=== PATIENT | male | born 1995 | race African-American/Black ===

== ENCOUNTER 2018-05-24 18:43 | Emergency (ER) | payer SELFPAY ==
--- NOTE | 2018-05-24 20:08 | EDPHYS ---
Physician Documentation [facility] Name: Lux Woodall Age: 23 yrs Sex: Male : 1995 Arrival Date: 05/24/2018 Time: 18:44 Bed 14 Private MD: ED Physician Puneet Pyle HPI: 05/24 19:56 This 23 yrs old Black Male presents to ER via Ambulatory with complaints of Headache. cp 19:56 The patient complains of pain to the forehead. The patient describes the headache as cp aching. Onset: The symptoms/episode began/occurred 2 day(s) ago. Associated signs and symptoms: The patient has no apparent associated signs or symptoms. 19:57 Severity of symptoms: in the emergency department the pain is unchanged, has not taken cp any medications for pain, a " 7" out of "10". Patient reports missing work today due to headache. Historical: - Allergies: 18:50 No Known Allergies; ch - Home Meds: 18:50 None [Active]; ch - PMHx: 18:50 None; ch - PSHx: 18:50 None; ch - Immunization history:: Adult Immunizations up to date, Flu vaccine is not up to date. - Social history:: Smoking status: Patient/guardian denies using tobacco, Patient uses alcohol, only on a social basis. Patient/guardian denies using street drugs. - Ebola Screening: : Patient negative for fever greater than or equal to 101.5 degrees Fahrenheit, and additional compatible Ebola Virus Disease symptoms Patient denies exposure to infectious person Patient denies travel to an Ebola-affected area in the 21 days before illness onset No symptoms or risks identified at this time. ROS: 19:58 Eyes: Negative for injury, pain, redness, and discharge. cp 19:58 Constitutional: Negative for body aches, chills, fever, poor PO intake. 19:58 ENT: Negative for drainage from ear(s), ear pain, sore throat, difficulty swallowing, difficulty handling secretions. 19:58 Neck: Negative for pain with movement, pain at rest, stiffness. 19:58 Cardiovascular: Negative for chest pain, edema, palpitations. 19:58 Respiratory: Negative for cough, shortness of breath, wheezing. 19:58 Abdomen/GI: Negative for abdominal pain, nausea, vomiting, and diarrhea. 19:58 Neuro: Positive for headache, Negative for altered mental status, weakness. 19:58 All other systems are negative. Exam: 20:01 Constitutional: The patient appears in no acute distress, alert, awake, comfortable, cp non-toxic, well developed, well nourished. 20:01 Head/Face: Normocephalic, atraumatic. cp 20:01 Eyes: Periorbital structures: appear normal, Pupils: equal, round, and reactive to light and accomodation, Extraocular movements: intact throughout, Conjunctiva: normal, no exudate, no injection, Lids and lashes: appear normal, bilaterally. 20:01 ENT: External ear(s): are unremarkable, Ear canal(s): are normal, clear, TM's: bulging, is not appreciated, bilaterally, dullness, bilaterally, erythema, is not appreciated, bilaterally, Nose: is normal, Mouth: Lips: moist, Oral mucosa: pink and intact, moist, Posterior pharynx: is normal, airway is patent, no erythema, no exudate. 20:01 Neck: ROM/movement: is normal, is supple, without pain, no range of motions limitations, no meningismus, no nuchal rigidity, Lymph nodes: no appreciated lymphadenopathy. 20:01 Chest/axilla: Inspection: normal, Palpation: is normal, no crepitus, no tenderness. 20:01 Cardiovascular: Rate: normal, Rhythm: regular. 20:01 Respiratory: the patient does not display signs of respiratory distress, Respirations: normal, no use of accessory muscles, no retractions, no splinting, no tachypnea, labored breathing, is not present, Breath sounds: are clear throughout, no decreased breath sounds, no stridor, no wheezing. 20:01 Abdomen/GI: Inspection: abdomen appears normal, Palpation: abdomen is soft and non-tender, in all quadrants. 20:01 Skin: cellulitis, is not appreciated, no rash present. 20:01 Neuro: Orientation: to person, place \\T\\ time. Mentation: is normal, Cerebellar function: is grossly normal, Motor: moves all fours, strength is normal, Sensation: is normal. Vital Signs: 18:50 BP 117 / 63; Pulse 67; Resp 16; Temp 97.8; Pulse Ox 99% on R/A; Weight 74.84 kg; Height ch 6 ft. (182.88 cm); Pain 7/10; 19:36 BP 114 / 69; Pulse 62; Resp 17 S; Pulse Ox 99% on R/A; cc3 20:10 BP 115 / 67; Pulse 65; Resp 16 S; Pulse Ox 99% on R/A; cc3 18:50 Body Mass Index 22.38 (74.84 kg, 182.88 cm) [facility]: 19:18 Patient medically screened. 20:06 Data reviewed: vital signs, nurses notes, and as a result, I will discharge patient. 20:06 Counseling: I had a detailed discussion with the patient and/or guardian regarding: the historical points, exam findings, and any diagnostic results supporting the discharge/admit diagnosis, to return to the emergency department if symptoms worsen or persist or if there are any questions or concerns that arise at home. Administered Medications: 20:10 Drug: Ibuprofen 800 mg Route: PO; cc3 20:20 Follow up: Response: No adverse reaction; Pain is decreased cc3 Disposition: 05/25 11:15 Co-signature as Attending Physician, Puneet Pyle MD I agree with the assessment and [facility] plan of care. Disposition: 05/24/18 20:07 Discharged to Home. Impression: Headache. - Condition is Stable. - Discharge Instructions: General Headache Without Cause. - Prescriptions for Naprosyn 500 mg Oral Tablet - take 1 tablet by ORAL route 2 times per day take with food; 20 tablet. - Medication Reconciliation Form, Thank You Letter, Antibiotic Education, Prescription Opioid Use, Work release form form. - Follow up: Private Physician; When: 2 - 3 days; Reason: Recheck today's complaints. - Problem is new. - Symptoms have improved. Signatures: Yana Gonsalez, RN Puneet Rm ch, MD MD cha Page, Corey, PA PA cp Cordel, Charlene cc3 Corrections: (The following items were deleted from the chart) 05/24 20:25 20:07 05/24/2018 20:07 Discharged to Home. Impression: Headache. Condition is Stable. cc3 Forms are Medication Reconciliation Form, Thank You Letter, Antibiotic Education, Prescription Opioid Use. Follow up: Private Physician; When: 2 - 3 days; Reason: Recheck today's complaints. Problem is new. Symptoms have improved. cp
--- NOTE | 2018-05-24 20:08 | ER ---
Nurse's Notes [facility] Name: uLx Woodall Age: 23 yrs Sex: Male : 1995 Arrival Date: 05/24/2018 Time: 18:44 Bed 14 Private MD: Diagnosis: Headache Presentation: 05/24 18:49 Presenting complaint: Patient states: headache for the past 2 days, to the front of my head. Transition of care: patient was not received from another setting of care. Onset of symptoms was May 22, 2018. Risk Assessment: Do you want to hurt yourself or someone else? Patient reports no desire to harm self or others. Initial Sepsis Screen: Does the patient meet any 2 criteria? No. Patient's initial sepsis screen is negative. Does the patient have a suspected source of infection? No. Patient's initial sepsis screen is negative. Care prior to arrival: None. 18:49 Method Of Arrival: Ambulatory 18:49 Acuity: TERRY 4 Triage Assessment: 18:50 Headache History: Denies prior headaches. General: Appears in no apparent distress. ch comfortable, Behavior is calm, cooperative. Pain: Complains of pain in forehead Pain currently is 7 out of 10 on a pain scale. Pain began gradually, Also complains of no other associated symptoms. 19:10 Neuro: Level of Consciousness is awake, alert, obeys commands, Oriented to person, cc3 place, time, situation, Appropriate for age. Historical: - Allergies: 18:50 No Known Allergies; - Home Meds: 18:50 None [Active]; ch - PMHx: 18:50 None; ch - PSHx: 18:50 None; - Immunization history:: Adult Immunizations up to date, Flu vaccine is not up to date. - Social history:: Smoking status: Patient/guardian denies using tobacco, Patient uses alcohol, only on a social basis. Patient/guardian denies using street drugs. - Ebola Screening: : Patient negative for fever greater than or equal to 101.5 degrees Fahrenheit, and additional compatible Ebola Virus Disease symptoms Patient denies exposure to infectious person Patient denies travel to an Ebola-affected area in the 21 days before illness onset No symptoms or risks identified at this time. Screenin:10 Abuse screen: Denies threats or abuse. Denies injuries from another. Nutritional cc3 screening: No deficits noted. Tuberculosis screening: No symptoms or risk factors identified. Fall Risk Ambulatory Aid- None/Bed Rest/Nurse Assist (0 pts). Gait- Normal/Bed Rest/Wheelchair (0 pts) Mental Status- Oriented to own ability (0 pts). Assessment: 19:15 Reassessment: Patient appears in no apparent distress at this time. Patient and/or cc3 family updated on plan of care and expected duration. Pain level reassessed. Patient is alert, oriented x 3, equal unlabored respirations, skin warm/dry/pink. Received from morning shift [facility] as a case of headache still to be seen by provider. 20:20 Reassessment: Patient appears in no apparent distress at this time. Patient and/or cc3 family updated on plan of care and expected duration. Pain level reassessed. Patient is alert, oriented x 3, equal unlabored respirations, skin warm/dry/pink. Patient discharged home by [facility] Pedro with prescription given. No IV cannula in situ. Patient left ER vitally stable and ambulatory with family. Vital Signs: 18:50 BP 117 / 63; Pulse 67; Resp 16; Temp 97.8; Pulse Ox 99% on R/A; Weight 74.84 kg; Height ch 6 ft. (182.88 cm); Pain 7/10; 19:36 BP 114 / 69; Pulse 62; Resp 17 S; Pulse Ox 99% on R/A; cc3 20:10 BP 115 / 67; Pulse 65; Resp 16 S; Pulse Ox 99% on R/A; cc3 18:50 Body Mass Index 22.38 (74.84 kg, 182.88 cm) ED Course: 18:44 Patient arrived in ED. as 18:50 Triage completed. 18:50 Arm band placed on left wrist. Patient placed in an exam room. 19:09 Lea Fuller is Primary Nurse. cc3 19:10 Patient has correct armband on for positive identification. Bed in low position. Call cc3 light in reach. Side rails up X 1. Pulse ox on. NIBP on. 19:18 Puneet Pedro PA is PHCP. cp 19:18 Puneet Pyle MD is Attending Physician. cp 19:18 Puneet Pyle MD is Attending Physician. [facility] 20:20 No provider procedures requiring assistance completed. Patient did not have IV access cc3 during this emergency room visit. Administered Medications: 20:10 Drug: Ibuprofen 800 mg Route: PO; cc3 20:20 Follow up: Response: No adverse reaction; Pain is decreased cc3 Outcome: 20:07 Discharge ordered by . cp 20:20 Discharged to home ambulatory, with family. cc3 20:20 Condition: stable 20:20 Discharge instructions given to patient, Instructed on discharge instructions, follow up and referral plans. medication usage, Demonstrated understanding of instructions, follow-up care, medications, Prescriptions given X 1. 20:25 Patient left the ED. cc3 Signatures: Yana Gonsalez, [facility] RN Puneet Clark MD MD cha Martinez, Amelia as Page, Corey, Lea Solano cp cc3
[2018-05-24] MEDS ORDERED: IBUPROFEN 400 MG TAB ONE (20:24)
== END 2018-05-24 20:25 | disposition home or self-care (01) ==
LOC: ER 18:43
DX: R51 Headache (principal)
CPT/HCPCS: 99283